=== PATIENT | male | born 1960 | race Hispanic/Latino ===

== ENCOUNTER 2025-05-31 20:34 | Emergency (ER) | payer OTHER ==
[~2025-05-31] VITALS: Ht 177.8 cm; Wt 99.8 kg
[2025-05-31 21:22] VITALS: TEMP 99.6
[2025-05-31 21:29] VITALS: PULSE 109; RESP 20
[2025-05-31 21:35] LABS: BASOPHILS % 0.3 % (0.0-1.0); EOSINOPHILS % 0.2 % (0.0-6.0); LYMPHOCYTES % 16.7 % (18.0-39.1); MONOCYTES % 9.0 % (4.4-11.3); NEUTROPHILS % 73.5 % (38.7-80.0); RED CELL DISTRIBUTION WIDTH 12.4 % (11.7-14.4)
[2025-05-31 21:41] LABS: LEUKOCYTE ESTERASE ,URINE 1+ (NEGATIVE); PROTEIN,URINE DIPSTICK NEGATIVE (NEGATIVE); URINE UROBILINOGEN 0.2 mg/dL (0.2 - 1)
[2025-05-31 21:53] LABS: EPITHELIAL CELLS,URINE FEW /LPF; WBC,URINE (MAN) >50 /HPF (0-5)
[2025-05-31 21:58] LABS: EST GLOMERULAR FILTRATION RATE 81.0 ML/MIN (>=60)
[2025-05-31] MEDS ORDERED: CEFDINIR300 MG PO (22:24)
[2025-05-31 22:50] VITALS: BP 135/93; PULSE 98; RESP 18; TEMP 98.9; O2SAT 97
[2025-06-03] MEDS ORDERED: FLOMAX0.4 MG PO (17:26)
[2025-06-03] MEDS ORDERED: FINASTERIDE5 MG PO (17:26)
[2025-06-03] MEDS ORDERED: LEVOFLOXACIN250 MG PO (17:29)
== END 2025-05-31 22:53 | disposition home or self-care (01) ==
LOC: ER 20:56
DX: R33.9 Retention of urine, unspecified (principal); N39.0 Urinary tract infection, site not specified; R10.30 Lower abdominal pain, unspecified; I10 Essential (primary) hypertension; E11.65 Type 2 diabetes mellitus with hyperglycemia; E78.5 Hyperlipidemia, unspecified; Z87.820 Personal history of traumatic brain injury
CPT/HCPCS: 36415; 51702; 80053; 81001; 85025; 87086; 87186; 99284; J0696; 51700

== ENCOUNTER 2025-06-02 16:30 | Inpatient (IN) | payer OTHER ==
[~2025-06-02] VITALS: Ht 177.8 cm; Wt 95.3 kg
[2025-06-02 16:30] VITALS: PULSE 92; RESP 16; TEMP 98.8
[~2025-06-02 16:30] MED LIST: CEFDINIR300 MG PO
[2025-06-02 17:25] LABS: BASOPHILS % 0.5 % (0.0-1.0); EOSINOPHILS % 1.9 % (0.0-6.0); LYMPHOCYTES % 30.5 % (18.0-39.1); MONOCYTES % 13.9 % (4.4-11.3); NEUTROPHILS % 53.0 % (38.7-80.0); RED CELL DISTRIBUTION WIDTH 12.3 % (11.7-14.4)
[2025-06-02 17:30] LABS: INR 0.96
[2025-06-02 17:39] LABS: EST GLOMERULAR FILTRATION RATE 65.0 ML/MIN (>=60)
[2025-06-02] MEDS ORDERED: IOPAMIDOL 370 MG/ML 100 ML INFUS..BTL INJ ONE (17:45)
[2025-06-02] MEDS: SODIUM CHLORIDE 0.9% 1000ML 1,000 ML IV STA ×2 (17:49→17:58)
[2025-06-02] MEDS: Morphine 4mg INJECTION 4 MG/ML INJ IV PRN (20:20)
[2025-06-02] MEDS: ONDANSETRON HCL INJ 2MG/ML 2ML 2 MG/ML VIAL IV PRN (20:20)
[2025-06-02 21:00] VITALS: BP 137/79; PULSE 94; RESP 18; TEMP 97.7; O2SAT 100
[2025-06-02 21:27] VITALS: BP 137/79; PULSE 94; RESP 18; TEMP 97.7; O2SAT 100
[2025-06-02] MEDS ORDERED: MELATONIN 5 MG TABLET PO PRN (22:15)
[2025-06-02] MEDS ORDERED: FAMOTIDINE 20 MG TAB PO PRN (22:15)
[2025-06-03] VITALS (7 sets, daily range): BP systolic 112–136; BP diastolic 71–82; PULSE 70–102; RESP 18–20; TEMP 97.7–98.1; O2SAT 97–100
[2025-06-03] MEDS: SODIUM CHLORIDE 0.9% 1000ML 1,000 ML IV SCH (00:10)
[2025-06-03 05:37] LABS: BASOPHILS % 0.4 % (0.0-1.0); EOSINOPHILS % 3.3 % (0.0-6.0); LYMPHOCYTES % 32.5 % (18.0-39.1); MONOCYTES % 13.9 % (4.4-11.3); NEUTROPHILS % 49.6 % (38.7-80.0); RED CELL DISTRIBUTION WIDTH 12.4 % (11.7-14.4)
[2025-06-03 06:16] LABS: EST GLOMERULAR FILTRATION RATE 83.0 ML/MIN (>=60)
[2025-06-03] MEDS ORDERED: PHENAZOPYRIDINE HCL 100 MG TAB PO PRN (11:15)
[2025-06-03] MEDS: TAMSULOSIN HCL 0.4 MG CAP PO SCH (12:19)
[2025-06-03] MEDS: DIPHENHYDRAMINE HCL 25 MG CAP PO ONE (14:46)
[2025-06-03] MEDS: FINASTERIDE 5 MG TAB PO SCH (16:11)
[2025-06-03] MEDS: ACETAMINOPHEN 325 MG TAB PO PRN (16:14)
[2025-06-03] MEDS ORDERED: FINASTERIDE5 MG PO (17:26)
[2025-06-03] MEDS ORDERED: FLOMAX0.4 MG PO (17:26)
[2025-06-03] MEDS ORDERED: LEVOFLOXACIN250 MG PO (17:29)
== END 2025-06-03 18:36 | disposition home or self-care (01) | DRG 726 ==
LOC: ER 17:33 → ERHOLD 18:50 → MED/SURG3 21:05
PROVIDERS: ADMIT Family Medicine Adult Medicine; ATTEND Family Medicine Adult Medicine
DX: N40.1 Benign prostatic hyperplasia with lower urinary tract symptoms (principal); N13.8 Other obstructive and reflux uropathy; N13.30 Unspecified hydronephrosis; N39.0 Urinary tract infection, site not specified; B95.2 Enterococcus as the cause of diseases classified elsewhere; R31.0 Gross hematuria; E11.9 Type 2 diabetes mellitus without complications; I10 Essential (primary) hypertension; E78.5 Hyperlipidemia, unspecified; R33.8 Other retention of urine; E66.9 Obesity, unspecified; Z96.0 Presence of urogenital implants; Z68.30 Body mass index [BMI] 30.0-30.9, adult; Z86.718 Personal history of other venous thrombosis and embolism; Z87.820 Personal history of traumatic brain injury
CPT/HCPCS: 36415; 74177; 80053; 82948; 83690; 84152; 85025; 85610; 85730; 99252; 99284; J2270; J2405; J2543; J7030; Q9967

== ENCOUNTER 2025-06-05 17:55 | Emergency (ER) | payer OTHER ==
[~2025-06-05] VITALS: Ht 170.2 cm; Wt 95.3 kg
[~2025-06-05 17:55] MED LIST changes: +FINASTERIDE5 MG PO; +FLOMAX0.4 MG PO; +LEVOFLOXACIN250 MG PO
[2025-06-05 19:03] VITALS: PULSE 87; RESP 19; TEMP 98.2
[2025-06-05 20:17] VITALS: BP 122/80; PULSE 93; RESP 17; TEMP 97.7; O2SAT 100
== END 2025-06-05 20:18 | disposition home or self-care (01) ==
LOC: ER 18:00
DX: R10.30 Lower abdominal pain, unspecified (principal); N32.89 Other specified disorders of bladder; N13.30 Unspecified hydronephrosis; K57.90 Diverticulosis of intestine, part unspecified, without perforation or abscess without bleeding; K59.89 Other specified functional intestinal disorders; Z87.448 Personal history of other diseases of urinary system
CPT/HCPCS: 74176; 99283